=== PATIENT | female | born 1985 | race Caucasian/White ===

== ENCOUNTER 2016-05-24 08:51 | Emergency (ER) | payer OTHER ==
[2016-05-24 09:14] VITALS: TEMP 98.5
[2016-05-24] MEDS ORDERED: IBUPROFEN 600 MG TAB PO STA (09:42)
--- NOTE | 2016-05-24 09:49 | ED ---
General Adult HPI - General Chief complaint: Extremity Injury, Upper Stated complaint: Fall, rib pain Time Seen by Provider: 05/24/16 09:34 Source: patient, RN notes reviewed Mode of arrival: ambulatory Limitations: no limitations - History of Present Illness Initial comments: Patient 30-year-old female who presents emergency room today with a chief complaint of a fall that occurred 2 days ago. She does admit that she slipped outside on the mud falling down onto right side of her chest wall. States arm was tucked in. She states she's been experiencing some pain to the lateral right upper ribs. She denies any head injury or loss conscious. Does admit the pain is worse with certain movements or if she coughs or sneezes. She denies any other complaints or associated symptoms. Patient denies any recent fever, chills, shortness of breath, chest pain, back pain, abdominal pain, nausea or vomiting, numbness or tingling, dysuria or hematuria, constipation or diarrhea, headaches or visual changes, or any other complaints. - Related Data Previous Rx's Medication Instructions Recorded Hydrocodone/Acetaminophen [Ruth 1 each PO Q6HR PRN #20 tab 05/24/16 5-325] Ibuprofen [Motrin] 600 mg PO Q6HR PRN #40 day 05/24/16 Allergies Allergy/AdvReac Type Severity Reaction Status Date / Time latex Allergy Severe Swelling Verified 02/05/16 12:53 Review of Systems ROS Statement: Those systems with pertinent positive or pertinent negative responses have been documented in the HPI. ROS Other: All systems not noted in ROS Statement are negative. Past Medical History Past Medical History: No Reported History History of Any Multi-Drug Resistant Organisms: None Reported Past Surgical History: Section Past Anesthesia/Blood Transfusion Reactions: No Reported Reaction Past Psychological History: No Psychological Hx Reported Smoking Status: Current every day smoker Past Alcohol Use History: None Reported Past Drug Use History: None Reported General Exam - General Exam Comments Initial Comments: General: The patient is awake and alert, in no distress, and does not appear acutely ill. Eye: Pupils are equal, round and reactive to light, extra-ocular movements are intact. No nystagmus. There is normal conjunctiva bilaterally. No signs of icterus. Ears, nose, mouth and throat: There are moist mucous membranes and no oral lesions. Neck: The neck is supple, there is no tenderness or JVD. Cardiovascular: There is a regular rate and rhythm. No murmur, rub or gallop is appreciated. Respiratory: Lungs are clear to auscultation, respirations are non-labored, breath sounds are equal. No wheezes, stridor, rales, or rhonchi. Musculoskeletal: Shows full range motion. Has normal appearance of the right side of the ribs no obvious deformity. No bruising or swelling. It is locally tender to the right lateral upper ribs. Strength 5/5. Sensation intact. Pulses equal bilaterally 2+. Neurological: A&O x 3. CN II-XII intact, There are no obvious motor or sensory deficits. Coordination appears grossly intact. Speech is normal. Skin: Skin is warm and dry and no rashes or lesions are noted. Psychiatric: Cooperative, appropriate mood & affect, normal judgment. Limitations: no limitations Course Vital Signs 05/24/16 09:10 Temperature 98.5 F Pulse Rate 83 Respiratory 20 Rate Blood Pressure 114/67 O2 Sat by Pulse 98 Oximetry Medical Decision Making - Medical Decision Making Patient's x-ray reviewed and does show evidence for possible ninth rib fracture. She does have point tenderness. X-ray of the lungs within normal limits. No sign of pneumothorax. Results were discussed with the patient. Patient will given pain medication go home with. Continue on anti- inflammatories also given a short prescription for Ruth. Advised follow-up the family doctor return here to the emergency room if any symptoms increase or worsen or for any other concerns. Disposition Clinical Impression: Rib fracture Disposition: HOME SELF-CARE Condition: Good Instructions: Rib Fracture (ED) Additional Instructions: Please use medication as discussed. Please follow-up with family doctor in the next 2 days of symptoms have not improved. Please return to emergency room if the symptoms increase or worsen or for any other concerns. Prescriptions: Hydrocodone/Acetaminophen [Ruth 5-325] 1 each PO Q6HR PRN #20 tab PRN Reason: Pain Ibuprofen [Motrin] 600 mg PO Q6HR PRN #40 day PRN Reason: Pain Time of Disposition: 10:41
--- NOTE | 2016-05-24 10:16 | XR ---
EXAMINATION TYPE: XR chest 2V DATE OF EXAM: 05/24/2016 10:02 AM COMPARISON: NONE HISTORY: Trauma and pain TECHNIQUE: Frontal and lateral views of the chest are obtained. FINDINGS: There is no focal air space opacity, pleural effusion, or pneumothorax seen. The cardiac silhouette size is within normal limits. The osseous structures are remarkable for a cortical irreg ularity of the posterior right ninth rib.. IMPRESSION: No acute cardiopulmonary process. Suspicious for fracture posterior right ninth rib.
[2016-05-24 10:59] VITALS: BP 123/75; PULSE 69; RESP 16
== END 2016-05-24 10:59 | disposition home or self-care (01) ==
LOC: EC 08:51
DX: S22.31XA Fracture of one rib, right side, initial encounter for closed fracture (principal); F17.200 Nicotine dependence, unspecified, uncomplicated; Z91.040 Latex allergy status; W01.0XXA Fall on same level from slipping, tripping and stumbling without subsequent striking against object, initial encounter
CPT/HCPCS: 71020; 99283

== ENCOUNTER → 2016-10-31 | Outpatient (CLI) | payer OTHER ==
--- NOTE | 2016-10-31 10:20 | US ---
EXAMINATION TYPE: US venous doppler duplex LE DATE OF EXAM: 10/31/2016 8:42 AM COMPARISON: NONE CLINICAL HISTORY: R29.2 Goodwin's reflex positive. Abnormal physical findings. SIDE PERFORMED: Bilateral TECHNIQUE: The lower extremity deep venous system is examined utilizing real time linear array sonog andreia with graded compression, doppler sonography and color-flow sonography. VESSELS IMAGED: External Iliac Vein (EIV) Common Femoral Vein Deep Femoral Vein Greater Saphenous Vein * Femoral Vein Popliteal Vein Proximal Calf Veins (* superficial vessels) Right Leg: Negative for DVT Left Leg: Negative for DVT IMPRESSION: 1. No ultrasound evidence of deep venous thrombosis bilateral lower extremities.
== END | disposition home or self-care (01) ==
LOC: RADUSWWP 08:07
PROVIDERS: ATTEND Family Medicine
DX: R29.2 Abnormal reflex (principal)
CPT/HCPCS: 93970

== ENCOUNTER → 2017-03-18 | Outpatient (CLI) | payer OTHER ==
--- NOTE | 2017-03-20 13:03 | P.ARTDOP ---
Arterial Doppler LOWER EXTREMITY ARTERIAL DOPPLER: DATE OF SERVICE: 03/18/2017 Reason for study: Bilateral leg pain. Doppler waveforms: Multiphasic bilaterally throughout. Pulse volume recording: []. Pressure gradients: None. Ankle-brachial indices: Greater than 1 bilaterally. Toe pressures: [] on the right, [] on the left Impression: Normal limited study.
== END | disposition home or self-care (01) ==
LOC: RADUSWWP 13:45
PROVIDERS: ATTEND Family Medicine
DX: M79.605 Pain in left leg (principal); M79.604 Pain in right leg; R20.9 Unspecified disturbances of skin sensation
CPT/HCPCS: 93922

== ENCOUNTER → 2017-12-06 | Outpatient (CLI) | payer OTHER ==
--- NOTE | 2017-12-07 23:09 | MR ---
EXAMINATION TYPE: MR lumbar spine wo con DATE OF EXAM: 12/06/2017 COMPARISON: NONE HISTORY: Low back pain into legs for 4 to 5 months per patient. Lumbago per order. TECHNIQUE: Multiplanar, multisequence imaging of the lumbar spine is performed without IV contrast. FINDINGS: Sagittal images of the lumbar spine show vertebral body heights to appear satisfactory. The re are bilateral pars defects suspected with slight grade 1 anterolisthesis of L5 on S1 noted. There is disc desiccation with moderate to advanced disc space narrowing and heterogeneous moderate type I endplate changes at L5-S1 level otherwise the intervertebral discs demonstrate normal heights and hyd ration. Small posterior disc herniation L5-S1 level is seen. The conus medullaris is normal in positi on and signal ending T12-L1 disc space level. No significant spurring is seen. Axial images at T12-L1 level is felt within normal limits. Axial images at the L1-L2 level show annular tear with tiny central disc protrusion minimally effacin g anterior thecal sac, bilateral neural foramina are patent. Axial images at L2-L3, L3-L4, and L4-L5 levels are felt within normal limits. Axial images at the L5-S1 level shows spondylolisthesis and tiny central disc protrusion. Spinal belinda l is preserved. There is moderate bilateral neural foraminal narrowing due to spondylolisthesis encro aching on both L5 nerves sagittal image 13 on the left and 3 on the right. IMPRESSION: Spondylolisthesis and small disc herniation causes moderate bilateral neural foraminal na rrowing and encroachment on both L5 nerves at L5-S1 level.
== END ==
LOC: RADMRIMAIN 17:34
PROVIDERS: ATTEND Psychiatry & Neurology Neurology
DX: M99.73 Connective tissue and disc stenosis of intervertebral foramina of lumbar region (principal); M51.27 Other intervertebral disc displacement, lumbosacral region; M43.17 Spondylolisthesis, lumbosacral region
CPT/HCPCS: 72148

== ENCOUNTER 2018-10-22 06:14 | Emergency (ER) | payer OTHER ==
[2018-10-22 06:20] VITALS: BP 125/70; PULSE 77; RESP 18; TEMP 98
--- NOTE | 2018-10-22 06:31 | ED ---
ENT HPI - General Chief complaint: ENT Stated complaint: L Ear Pain Time Seen by Provider: 10/22/18 06:21 Source: patient, RN notes reviewed Mode of arrival: ambulatory Limitations: no limitations - History of Present Illness Initial comments: This a 31-year-old female presents emergency Department chief complaint left ear pain. Patient states started until 4 days ago progressively worsening. Patient states that she feels and he has muffled and left ear and he states it's painful for her to Dr. left ear she admits to some fevers at home. No drainage denies any recent trauma no recurrent ear infections. Patient states that she has mild nasal congestion denies any sore throat, cough or chest congestion. Denies any headache or current dizziness. Patient has not taken any medications for her symptoms at this time. - Related Data Previous Rx's Medication Instructions Recorded Hydrocodone/Acetaminophen [[place] 1 each PO Q6HR PRN #20 tab 05/24/16 5-325] Ibuprofen [Motrin] 600 mg PO Q6HR PRN #40 day 05/24/16 Amoxicillin/Potassium Clav 1 tab PO Q12HR #14 tab 10/22/18 [Augmentin 875-125 Tablet] Fluticasone Nasal [place] [Flonase 2 spr EA NOSTRIL DAILY #1 bottle 10/22/18 Nasal [place]] Allergies Allergy/AdvReac Type Severity Reaction Status Date / Time latex Allergy Severe Swelling Verified 10/22/18 06:20 Review of Systems ROS Statement: Those systems with pertinent positive or pertinent negative responses have been documented in the HPI. ROS Other: All systems not noted in ROS Statement are negative. Past Medical History Past Medical History: No Reported History History of Any Multi-Drug Resistant Organisms: None Reported Past Surgical History: Section Past Anesthesia/Blood Transfusion Reactions: No Reported Reaction Past Psychological History: No Psychological Hx Reported Smoking Status: Current every day smoker Past Alcohol Use History: None Reported Past Drug Use History: None Reported General Exam Limitations: no limitations General appearance: alert, in no apparent distress Head exam: Present: atraumatic, normocephalic, normal inspection Eye exam: Present: normal appearance, PERRL, EOMI. Absent: scleral icterus, conjunctival injection, periorbital swelling ENT exam: Present: normal oropharynx, mucous membranes moist, normal external ear exam. Absent: normal exam, TM's normal bilaterally (Mild erythema mild fluid noted left) Neck exam: Present: normal inspection, full ROM. Absent: tenderness, meningismus, lymphadenopathy Respiratory exam: Present: normal lung sounds bilaterally. Absent: respiratory distress, wheezes, rales, rhonchi, stridor Cardiovascular Exam: Present: regular rate, normal rhythm, normal heart sounds. Absent: systolic murmur, diastolic murmur, rubs, gallop, clicks Neurological exam: Present: alert, oriented X3, CN II-XII intact Skin exam: Present: warm, dry, intact, normal color. Absent: rash Course Vital Signs 10/22/18 06:17 Temperature 98 F Pulse Rate 77 Respiratory 18 Rate Blood Pressure 125/70 O2 Sat by Pulse 100 Oximetry Medical Decision Making - Medical Decision Making 32-year-old presented for left ear pain. Patient has bilateral eustachian tube dysfunction there is mild erythema over treated for otitis media. Patient will given Flonase, take [id number] antihistamine/decongestants will follow-up with ENT if needed. Disposition Clinical Impression: Otitis media, Eustachian tube dysfunction Disposition: HOME SELF-CARE Condition: Stable Instructions (If sedation given, give patient instructions): Earache (ED) Additional Instructions: Please return to the Emergency Department if symptoms worsen or any other concerns. Prescriptions: Amoxicillin/Potassium Clav [Augmentin 875-125 Tablet] 1 tab PO Q12HR #14 tab Fluticasone Nasal [place] [Flonase Nasal [place]] 2 spr EA NOSTRIL DAILY #1 bottle Is patient prescribed a controlled substance at d/c from ED?: No Referrals: None,Stated [Primary Care Provider] - 1-2 days Time of Disposition: 06:31
== END 2018-10-22 06:39 | disposition home or self-care (01) ==
LOC: EC 06:14
DX: H66.92 Otitis media, unspecified, left ear (principal); H69.83 Other specified disorders of Eustachian tube, bilateral; F17.200 Nicotine dependence, unspecified, uncomplicated; Z91.040 Latex allergy status
CPT/HCPCS: 99282

== ENCOUNTER 2024-07-14 10:33 | Emergency (ER) | payer OTHER ==
--- NOTE | 2024-07-14 11:04 | ED ---
General Adult HPI - General Chief complaint: Recheck/Abnormal Lab/Rx Stated complaint: rib injury Time Seen by Provider: 07/14/24 10:44 Source: patient, RN notes reviewed Mode of arrival: ambulatory Limitations: no limitations - History of Present Illness Initial comments: 38-year-old female presents to the emergency department for left-sided chest wall tenderness. Patient states that she took a fall 2 days ago while wrestling with her son. She states that his elbow went into her ribs. She notes that she had pain immediately following this. She states that over the past 2 days she has had difficulty sleeping due to the pain. She does report prior rib fractures on the left. She states that this feels similar. She notes pain when she takes a deep breath. She denies any fever, chills, cough, shortness of breath. - Related Data Previous Rx's Medication Instructions Recorded Hydrocodone/Acetaminophen [[place] 1 each PO Q6HR PRN #20 tab 05/24/16 5-325] Ibuprofen [Motrin] 600 mg PO Q6HR PRN #40 day 05/24/16 Amoxicillin/Potassium Clav 1 tab PO Q12HR #14 tab 10/22/18 [Augmentin 875-125 Tablet] Fluticasone Nasal [place] [Flonase 2 spr EA NOSTRIL DAILY #1 bottle 10/22/18 Nasal [place]] Ketorolac [Toradol] 10 mg PO Q8HR #9 tab 07/14/24 Lidocaine 5% Patch [Lidoderm 5% 1 patch TOPICAL DAILY #30 patch 07/14/24 Patch] Allergies Allergy/AdvReac Type Severity Reaction Status Date / Time latex Allergy Severe Swelling Verified 07/14/24 10:43 Review of Systems ROS Statement: Those systems with pertinent positive or pertinent negative responses have been documented in the HPI. ROS Other: All systems not noted in ROS Statement are negative. Past Medical History Past Medical History: No Reported History History of Any Multi-Drug Resistant Organisms: None Reported Past Surgical History: Section Past Anesthesia/Blood Transfusion Reactions: No Reported Reaction Past Psychological History: No Psychological Hx Reported Smoking Status: Current every day smoker Past Alcohol Use History: Rare Past Drug Use History: None Reported General Exam Limitations: no limitations General appearance: alert, in no apparent distress Head exam: Present: atraumatic, normocephalic, normal inspection Eye exam: Present: normal appearance, PERRL, EOMI. Absent: scleral icterus, conjunctival injection, periorbital swelling Respiratory exam: Present: rhonchi, chest wall tenderness. Absent: respiratory distress, wheezes, rales, stridor Cardiovascular Exam: Present: regular rate, normal rhythm, normal heart sounds. Absent: systolic murmur, diastolic murmur, rubs, gallop, clicks GI/Abdominal exam: Present: soft, normal bowel sounds. Absent: distended, tenderness, guarding, rebound, rigid Extremities exam: Present: normal inspection, full ROM, normal capillary refill. Absent: tenderness, pedal edema, joint swelling, calf tenderness Back exam: Present: normal inspection Neurological exam: Present: alert, oriented X3 Psychiatric exam: Present: normal affect, normal mood Skin exam: Present: warm, dry, intact, normal color. Absent: rash Course Vital Signs 07/14/24 10:40 Temperature 97.8 F Pulse Rate 65 Respiratory 18 Rate Blood Pressure 143/84 O2 Sat by Pulse 95 Oximetry Medical Decision Making - Medical Decision Making Was pt. sent in by a medical professional or institution (, PA, ADMISSIONS RECRUITER, urgent care, hospital, or detention...) When possible be specific @ -No Did you speak to anyone other than the patient for history (EMS, parent, family, police, friend...)? What history was obtained from this source @ -No Did you review nursing and triage notes (agree or disagree)? Why? @ -I reviewed and agree with nursing and triage notes Were old charts reviewed (outside hosp., previous admission, EMS record, old EKG, old radiological studies, urgent care reports/EKG's, detention records)? Report findings @ -No old charts were reviewed Differential Diagnosis (chest pain, altered mental status, abdominal pain women, abdominal pain men, vaginal bleeding, weakness, fever, dyspnea, syncope, headache, dizziness, GI bleed, back pain, seizure, CVA, palpatations, mental health, musculoskeletal)? @ -Differential Musculoskeletal Muscular strain, contusion, ligament sprain, fracture, arthritis, septic arthritis, bursitis, cellulitis, muscle spasm, nerve compression, DVT, arterial occlusion, herpes zoster, electrolyte abnormality, tumor.... This is not meant to be in all inclusive list EKG interpreted by me (3pts min.). @ -None X-rays interpreted by me (1pt min.). @ -X-ray of the ribs reveals no evidence of dislocated rib fracture, no acute cardiopulmonary process CT interpreted by me (1pt min.). @ -None done U/S interpreted by me (1pt. min.). @ -None done What testing was considered but not performed or refused? (CT, X-rays, U/S, labs)? Why? @ -None What meds were considered but not given or refused? Why? @ -None Did you discuss the management of the patient with other professionals (pr ofessionals i.e. , PA, ADMISSIONS RECRUITER, lab, RT, psych nurse, social service technician, uncrater, teacher, artillery officer, transplant case manager)? Give summary @ -No Was smoking cessation discussed for >3mins.? @ -No Was critical care preformed (if so, how long)? @ -No Were there social determinants of health that impacted care today? How? (Homelessness, low income, unemployed, alcoholism, drug addiction, transportation, low edu. Level, literacy, decrease access to med. care, snf, rehab)? @ -No Was there de-escalation of care discussed even if they declined (Discuss DNR or withdrawal of care, Hospice)? DNR status @ -No What co-morbidities impacted this encounter? (DM, HTN, Smoking, COPD, CAD, Cancer, CVA, ARF, Chemo, Hep., AIDS, mental health diagnosis, sleep apnea, morbid obesity)? @ -None Was patient admitted / discharged? Hospital course, mention meds given and route, prescriptions, significant lab abnormalities, going to OR and other pertinent info. @ -Discharge. Patient presented the emergency department for evaluation of left rib pain. Patient states that she fell 2 days ago. X-rays of the ribs were obtained revealing no evidence of dislocated rib fracture, no acute cardiopulmonary process. Patient provided Toradol in the emergency department. I provided her an incentive spirometer. Recommended anti-inflammatory medications. She will be discharged home. She is understanding agreeable plan. Patient stable at time of discharge. Case discussed with Dr. Fischer. Undiagnosed new problem with uncertain prognosis? @ -No Drug Therapy requiring intensive monitoring for toxicity (Heparin, Nitro, Insulin, Cardizem)? @ -No Were any procedures done? @ -No Diagnosis/symptom? @ -Rib contusion Acute, or Chronic, or Acute on Chronic? @ -Acute Uncomplicated (without systemic symptoms) or Complicated (systemic symptoms)? @ -Uncomplicated Side effects of treatment? @ -No Exacerbation, Progression, or Severe Exacerbation? @ -No Poses a threat to life or bodily function? How? (Chest pain, [place], [place], pneumonia, PE, COPD, DKA, ARF, appy, cholecystitis, CVA, Diverticulitis, Homicidal, Suicidal, threat to staff... and all critical care pts) @ -No Disposition Clinical Impression: Rib contusion Disposition: HOME SELF-CARE Condition: Stable Instructions (If sedation given, give patient instructions): Rib Contusion (ED) Additional Instructions: Utilize incentive spirometer. Please follow-up with your doctor. Return to the emergency department for new or worsening symptoms. Is patient prescribed a controlled substance at d/c from ED?: No Referrals: None,Stated [Primary Care Provider] - 1-2 days
[2024-07-14] MEDS: KETOROLAC 15 MG/ML 1 ML VIAL IM STA (11:10)
--- NOTE | 2024-07-14 11:37 | XR ---
EXAMINATION TYPE: XR ribs LT w pa chest xray DATE OF EXAM: 07/14/2024 11:31 AM COMPARISON: Prior chest x-ray 2017 CLINICAL INDICATION: Female, 38 years old with history of fall; [facility], pain TECHNIQUE: XR ribs LT w pa chest xray; Frontal and oblique views of the ribs with frontal chest radio graph. FINDINGS: The ribs have a normal appearance. No evidence of acute displaced fracture. Overall, the lungs remain clear. The cardiac silhouette is normal in size. The remaining osseous st ructures are intact. IMPRESSION: No acute displaced left-sided rib fractures. No acute cardiopulmonary process. [facility], , 07/14/2024 11:35 AM
[2024-07-14 12:13] VITALS: BP 124/79; PULSE 60; RESP 16; TEMP 98.1
== END 2024-07-14 12:14 | disposition home or self-care (01) ==
LOC: EC 10:33
DX: S20.212A Contusion of left front wall of thorax, initial encounter (principal); F17.200 Nicotine dependence, unspecified, uncomplicated; Z91.040 Latex allergy status; W19.XXXA Unspecified fall, initial encounter; Y93.72 Activity, wrestling
CPT/HCPCS: 71101; 99283; 96372; J1885